=== PATIENT | male | born 1950 | race Two or more races ===

== ENCOUNTER → 2021-06-11 | Day surgery (SDC) | payer OTHER ==
[~2021-06-11] VITALS: Ht 175.3 cm; Wt 83.9 kg
[~2021-06-11] MED LIST: AMLO-496 PO; BUPIVACAINE HCL 50 ML ONE; EPINEPHrine HCL 1 MG/1 ML AMP ONE; HYDROmorphone HCL 2 MG/ML VL IV PRN; LABETALOL HCL 5 MG/ML 4ML SYRINGE IV PRN; LEVO25TA6 PO; MEPERIDINE HCL (50 MG/ML) 1 ML VIAL ONE; MIDAZOLAM HCL 2MG/2ML 2ml VIAL (1mg/ml) IV PRN; MIDAZOLAM HCL 2MG/2ML 2ml VIAL (1mg/ml) ONE; MORPHINE SULFATE 4 MG/ML SYR/VIAL IV PRN; ONDANSETRON HCL 4 MG/2 ML VIAL IV PRN; VANCOMYCIN HCL 1000 MG VL ONE; ePHEDrine SULFATE 50 MG/ML AMP IV PRN; fentaNYL CITRATE 100 MCG/2 ML VL ONE
[2021-06-11 09:30] VITALS: BP 124/71
== END | disposition home or self-care (01) ==
LOC: SUR 06:18
PROVIDERS: ATTEND Orthopaedic Surgery
DX: S83.241A Other tear of medial meniscus, current injury, right knee, initial encounter (principal); S83.281A Other tear of lateral meniscus, current injury, right knee, initial encounter; M94.261 Chondromalacia, right knee; M65.9 Synovitis and tenosynovitis, unspecified; M67.51 Plica syndrome, right knee; I10 Essential (primary) hypertension; E03.9 Hypothyroidism, unspecified; Z90.49 Acquired absence of other specified parts of digestive tract; Z98.890 Other specified postprocedural states; Z79.899 Other long term (current) drug therapy; Z88.0 Allergy status to penicillin; Z79.890 Hormone replacement therapy; Z87.891 Personal history of nicotine dependence; Z20.822 Contact with and (suspected) exposure to COVID-19; X58.XXXA Exposure to other specified factors, initial encounter; Y93.89 Activity, other specified; Y92.89 Other specified places as the place of occurrence of the external cause; Y99.8 Other external cause status
CPT/HCPCS: 29879; 29880; J0171; J2175; J2250; J2405; J3010; J3370; J3490; J7050; U0003

== ENCOUNTER 2024-01-24 02:32 | Emergency (ER) | payer OTHER ==
[~2024-01-24] VITALS: Ht 175.3 cm; Wt 87.3 kg
[~2024-01-24 02:32] MED LIST changes: -AMLO-496 PO; +AMLO1TAB23 PO; -BUPIVACAINE HCL 50 ML ONE; -EPINEPHrine HCL 1 MG/1 ML AMP ONE; -HYDROmorphone HCL 2 MG/ML VL IV PRN; -LABETALOL HCL 5 MG/ML 4ML SYRINGE IV PRN; -MEPERIDINE HCL (50 MG/ML) 1 ML VIAL ONE; -MIDAZOLAM HCL 2MG/2ML 2ml VIAL (1mg/ml) IV PRN; -MIDAZOLAM HCL 2MG/2ML 2ml VIAL (1mg/ml) ONE; -MORPHINE SULFATE 4 MG/ML SYR/VIAL IV PRN; -ONDANSETRON HCL 4 MG/2 ML VIAL IV PRN; -VANCOMYCIN HCL 1000 MG VL ONE; -ePHEDrine SULFATE 50 MG/ML AMP IV PRN; -fentaNYL CITRATE 100 MCG/2 ML VL ONE
[2024-01-24 03:00] VITALS: BP 150/96; PULSE 99; RESP 18; TEMP 97.7; O2SAT 94
[2024-01-24] MEDS: DexAMETHasone SOD PHOS 10MG/1ML VIAL INJ IM ONE (05:02)
[2024-01-24] MEDS ORDERED: METH4PAK PO (05:05)
== END 2024-01-24 05:26 | disposition home or self-care (01) ==
LOC: ER 02:32
DX: H20.9 Unspecified iridocyclitis (principal); I10 Essential (primary) hypertension; Z88.0 Allergy status to penicillin; Z79.899 Other long term (current) drug therapy
CPT/HCPCS: 96372; 99283; J1100